=== PATIENT | female | born 1965 | race Caucasian/White ===

== ENCOUNTER → 2021-05-25 10:08 | Outpatient (CLI) | payer OTHER, SELFPAY ==
[2021-05-25 10:51] LABS: Hematocrit 38.3 % (36-46); Mean Corpuscular HGB Conc 33.8 % (30-36); Mean Corpuscular Hemoglobin 31.6 PG (26-34); Mean Corpuscular Volume 93.4 fL (80-100); Platelet Count 224 X10^3/uL (150-400); Red Cell Distribution Width 12.2 % (11.6-14.8); White Blood Cell Count 5.4 X10^3/uL (4.5-11.0)
[2021-05-25 11:29] LABS: Alanine Aminotransferase 17 IU/L (<35); Albumin Globulin Ratio 1.8 (1.0-2.8); Alkaline Phosphatase 50 U/L (38-126); Aspartate Aminotransferase 24 IU/L (14-36); BUN Creatinine Ratio 17.5 (6-22); Bilirubin Total 0.8 mg/dL (0.2-1.3); Blood Urea Nitrogen 14 mg/dL (7-17); Calcium 9.3 mg/dL (8.4-10.2); Carbon Dioxide 25 mmol/L (22-32); Chloride 102 mmol/L (98-107); Cholesterol 191 mg/dL (140-199); Estimated Glomerular Filt Rate > 60.0 mL/min (>60); Globulin 2.2 g/dL (1.7-4.1); Glucose 98 mg/dL (70-100); HDL Cholesterol 75 mg/dL (40-60); HEMOLYSIS < 15 (0-50); LDL Cholesterol Calculated 99 mg/dL (<100); Potassium 4.7 mmol/L (3.4-5.1); Sodium 133 mmol/L (137-145); Total Protein 6.2 g/dL (6.3-8.2); Triglycerides 84 mg/dL (35-150)
[2021-05-25 11:59] LABS: TSH w/ Reflex to FT4 1.15 uIU/mL (0.47-4.68)
== END ==
PROVIDERS: PCP Registered Nurse Diabetes Educator; Referring Provider Registered Nurse Diabetes Educator; Visit Provider Registered Nurse Diabetes Educator
DX: Z00.00 Encounter for general adult medical examination without abnormal findings (principal); E78.5 Hyperlipidemia, unspecified
CPT/HCPCS: 36415; 80053; 80061; 84443; 85027

== ENCOUNTER → 2021-08-03 17:06 | Outpatient (CLI) | payer OTHER, SELFPAY ==
--- NOTE | 2021-08-03 17:06 | DI.MG.S_ITS ---
BILATERAL DIGITAL SCREENING MAMMOGRAM 3D/2D WITH CAD: 08/03/2021 CLINICAL: Routine screening. Family history of breast cancer. Comparison is made to exam dated: 08/19/2019 mammogram - out side. There are scattered fibroglandular elements in both breasts. Current study was also evaluated with a Computer Aided Detection (CAD) system. No significant masses, calcifications, or other findings are seen in either breast. There has been no significant interval change. IMPRESSION: NEGATIVE There is no mammographic evidence of malignancy. A 1 year screening mammogram is recommended. This exam was interpreted at Station ID: [id number]. NOTE: For mammograms, a report in lay terms will be sent to the patient. Approximately 15% of breast malignancies will not be visualized mammographically. In the management of a palpable breast mass, a negative mammogram must not discourage biopsy of a clinically suspicious lesion. Electronically Signed By: Marlon Austin M.D., jr/shannon:08/04/2021 08:36:55 letter sent: Normal Exam ACR BI-RADS Category 1: Negative 3341F
== END ==
PROVIDERS: PCP Registered Nurse Diabetes Educator; Referring Provider Registered Nurse Diabetes Educator; Visit Provider Registered Nurse Diabetes Educator
DX: Z12.31 Encounter for screening mammogram for malignant neoplasm of breast (principal); Z80.3 Family history of malignant neoplasm of breast
CPT/HCPCS: 77063; 77067

== ENCOUNTER → 2022-02-12 10:14 | Outpatient (CLI) | payer OTHER, SELFPAY ==
[2022-02-12 12:25] LABS: COVID19 -Nasal RAPID Negative (Negative)
== END ==
PROVIDERS: PCP Registered Nurse Diabetes Educator; Visit Provider Surgery
DX: Z01.812 Encounter for preprocedural laboratory examination (principal); Z20.822 Contact with and (suspected) exposure to COVID-19
CPT/HCPCS: 87635; C9803

== ENCOUNTER 2022-02-13 09:45 | Day surgery (SDC) | payer OTHER, SELFPAY ==
[2022-02-13] VITALS (11 sets, daily range): BP systolic 75–132; BP diastolic 35–78; PULSE 60–78; RESP 10–144; TEMP 36.1–37.2; O2SAT 91–100; BMI 19.2
--- NOTE | 2022-02-13 | PATH_ITS ---
[facility] Accession Number: [id number] . 01 Material submitted: . rectum - RECTAL POLYP . 02 Diagnosis: Rectal Polyp, Biopsy: Hyperplastic polyp. MRV 02/15/2022 1347 Local . 02 Electronically signed: . Pasquale Kim MD, PhD, Pathologist NPI- [id number] . 01 Gross description: . RECTAL POLYP: Received in formalin is 1 fragment(s) of gutierrez, soft tissue measuring 0.3 x 0.2 x 0.2 cm submitted entirely in 1 cassette(s) /TR 02/14/2022 1440 Local . 02 Pathologist provided ICD-10: K62.1 . 02 CPT . 033646 Specimen Comment: A courtesy copy of this report has been sent to [phone] Performed at: 01 [facility] [address] [id number] MD Hal Dudley MD Phone: [phone] Performed at: 02 [facility] [id number] [facility] [address] [place], [place] [id number] MD Gila Bush MD Phone: [phone]
[2022-02-13] MEDS: LACTATED RINGERS 1,000 ML 200 ML IV (09:52)
--- NOTE | 2022-02-13 10:23 | PM.HP.1 ---
History of Present Illness History of Present Illness Date Patient Seen: 02/13/22 Time Patient Seen: 10:23 Chief complaint: SDC Narrative: The patient presents for colorectal sreening. They have never had any previous examination for such. No personal or family history of colon cancer. On further history denies any recent gastrointestinal symptoms. No nausea, vomiting, abdominal pain, loss of appetite, unexplained weight loss, change in bowel habits, diarrhea, constipation, melena, hematochezia, or bright red blood per rectum. Patient History Medical History Dyslipidemia Family & Social History Social History: household members spouse Tobacco & Substance use: Smoking Status Never smoker Substance Use Type does not use Meds Home Medications and Allergies Home Medications Medication Instructions Recorded Confirmed Type cholecalciferol (vitamin D3) PO 05/09/21 05/25/21 History aqkqdvhzrhfh-Cv-upqg-minerals 18 tab PO DAILY 05/09/21 05/25/21 History mg-0.4 mg tablet (Maximum Daily Multivitamin) omega-3 fatty acids [Fish Oil PO 05/09/21 05/25/21 History Concentrate] estradiol 0.025 mg/24 hr weekly 1 patch TRANSDERMAL QWEEK #12 ea 05/25/21 02/13/22 Rx transdermal patch (Climara) progesterone micronized 100 mg 100 mg PO BEDTIME #90 cap 05/25/21 02/13/22 Rx capsule Allergies Allergy/AdvReac Type Severity Reaction Status Date / Time No Known Drug Allergies Allergy Verified 02/13/22 09:43 Exam Vital Signs (past 8 hours): - 02/13/22 09:57 Temperature 98.9 F Pulse Rate 70 Respiratory Rate 18 Blood Pressure 132/78 Pulse Oximetry 100 Oxygen Delivery Method Room Air Narrative Exam Narrative: GENERAL: Thin adult female in no apparent distress HEENT: No scleral icterus CV: Regular rate, no peripheral edema LUNGS: No increased work of breathing. Patient speaks in full sentences without oxygen support. ABDOMEN: Soft, non-tender, non-distended NEURO: Nonfocal, normal strength throughout, normal gait. SKIN: Warm and dry Assessment & Plan Assessment & Plan narrative: The patient requires colorectal screening and colonoscopy is recommended. Technical details were discussed. Risks, benefits, alternatives explained. Risks including but not limited to myocardial infarction, aspiration, bleeding, pain, missed lesion, incomplete examination, need for further radiographic studies, colonic perforation, and need for major abdominal surgery were discussed. All questions were answered to their satisfaction, and they are in agreement with this plan. Time Spent With Patient Critical Care time: I spent a total of [] minutes of critical care time on this patient's care today; this time is exclusive of procedural time.
[2022-02-13] MEDS: MIDAZOLAM 5 MG/5 ML VIAL IV (10:50)
[2022-02-13] MEDS: fentaNYL 250 MCG/5 ML INJ IV (10:50)
--- NOTE | 2022-02-13 10:53 | P.OP.COLON_ITS ---
Operative Date/Time/Diagnoses Date of procedure: 02/13/22 Time of procedure: 10:53 Pre-op diagnosis: Screening Post-op diagnosis: same Procedure & Clinicians Study performed: Colonoscopy Same procedure as scheduled: Yes Indications: Screening Surgeon: Kai James Procedure Notes Procedure in detail: Medications: Conscious sedation using 5 mg IV midazolam and 125 mcg IV of fentanyl The history and physical was performed/updated and the patient is ASA class is 1. The procedure was discussed in detail with the patient. Potential risks complications including infection, bleeding, missed diagnosis, perforation, need for surgery, and were explained. Their questions were answered and informed consent was obtained. Patient was brought to the procedure room and placed standard monitoring equipment. The patient's vital signs were monitored continuously throughout the entire procedure. Prior to starting time-out was performed. The patient was placed in the left lateral recumbent position. Procedural sedation was adminis tered. Examination began with a thorough inspection of the perianal area there was no evidence of fissures, fistulae, external hemorrhoids or cutaneous malignancy. The colonoscopy scope was then placed into the anal canal and was advanced to the cecum, which was identified by the ileocecal valve, the appendiceal orifice and the confluence of the taenia. The scope was then slowly withdrawn examining colon thoroughly in all directions, irrigating it of any residual stool. FINDINGS 1. Rectum-distal 5 mm polyp removed with Jumbo forceps 2. Remainder of colon was normal and healthy with its appearance The patient tolerated the procedure well. They will be discharged once criteria are met. The prep was of good/excellent quality. The withdrawl time was7 minutes. The sedation time was 25 minutes. Specimen(s): other (Rectal polyp) Complications: none Impression: Colonic polyp Post-procedure Recommendations: Colonoscopy in 5 years Follow up: as needed Disposition: same day surgery
--- NOTE | 2022-02-13 11:12 | SUR.PHASEI ---
Patient drowsy but arousable to verbal stimuli; abdomen soft; taking sips of gingerale without difficulty. Denies pain or nausea. VSS.
[2022-02-13] MEDS: ONDANSETRON 4 MG/2 ML INJ IV (11:43)
== END 2022-02-13 11:51 | disposition home or self-care (01) ==
PROVIDERS: PCP Registered Nurse Diabetes Educator; Referring Provider Surgery; Visit Provider Surgery
PROC: 0DJD8ZZ Inspection of Lower Intestinal Tract, Via Natural or Artificial Opening Endoscopic (ICD-10-PCS; CPT 45378; principal; 2022-02-13 10:00)
DX: Z12.11 Encounter for screening for malignant neoplasm of colon (principal); K62.1 Rectal polyp
CPT/HCPCS: 45380; 99152; 99153; J2250; J2405; J3010

== ENCOUNTER → 2022-05-28 09:39 | Outpatient (CLI) | payer OTHER, SELFPAY ==
[2022-05-28 10:28] LABS: Hematocrit 38.3 % (36-46); Hemoglobin 13.3 g/dL (12.0-16.0); Mean Corpuscular HGB Conc 34.7 % (30-36); Mean Corpuscular Hemoglobin 31.5 PG (26-34); Mean Corpuscular Volume 90.9 fL (80-100); Platelet Count 244 X10^3/uL (150-400); Red Blood Cell Count 4.21 X10^6/uL (4.0-5.2); Red Cell Distribution Width 12.5 % (11.6-14.8); White Blood Cell Count 5.3 X10^3/uL (4.5-11.0)
[2022-05-28 10:38] LABS: Alanine Aminotransferase 16 IU/L (<35); Albumin 4.6 g/dL (3.5-5.0); Albumin Globulin Ratio 1.8 (1.0-2.8); Alkaline Phosphatase 46 U/L (38-126); Aspartate Aminotransferase 22 IU/L (14-36); BUN Creatinine Ratio 19.2 (6-22); Bilirubin Total 0.7 mg/dL (0.2-1.3); Blood Urea Nitrogen 15 mg/dL (7-17); Carbon Dioxide 27 mmol/L (22-32); Chloride 101 mmol/L (98-107); Cholesterol 222 mg/dL (140-199); Estimated Glomerular Filt Rate > 60 mL/min (>60); Globulin 2.6 g/dL (1.7-4.1); Glucose 103 mg/dL (70-100); HDL Cholesterol 83 mg/dL (40-60); HEMOLYSIS < 15 (0-50); LDL Cholesterol Calculated 123 mg/dL (<100); Potassium 4.4 mmol/L (3.4-5.1); Sodium 136 mmol/L (137-145); Total Protein 7.2 g/dL (6.3-8.2); Triglycerides 82 mg/dL (35-150)
[2022-05-28 10:40] LABS: HEMOLYSIS < 15 (0-50); Iron 139 ug/dL (37-170)
[2022-05-28 10:50] LABS: Percent Iron Saturation 55 % (15-50); Total Iron Binding Capacity 255 ug/dL (265-497); Transferrin 211 mg/dL (206-381)
[2022-05-28 11:04] LABS: TSH w/ Reflex to FT4 0.97 uIU/mL (0.47-4.68)
[2022-05-28 11:08] LABS: Ferritin 104 ng/mL (11-264)
== END ==
PROVIDERS: PCP Registered Nurse Diabetes Educator; Referring Provider Registered Nurse Diabetes Educator; Visit Provider Registered Nurse Diabetes Educator
DX: L65.9 Nonscarring hair loss, unspecified (principal); L65.8 Other specified nonscarring hair loss
CPT/HCPCS: 36415; 80053; 80061; 82627; 82728; 83540; 83550; 84403; 84443; 85027

== ENCOUNTER → 2023-09-05 16:26 | Outpatient (CLI) | payer OTHER, SELFPAY ==
--- NOTE | 2023-09-05 | DI.MG.S_ITS ---
BILATERAL DIGITAL SCREENING MAMMOGRAM 3D/2D WITH CAD: 09/05/2023 CLINICAL: Routine screening. Family history of breast cancer. Comparison is made to exams dated: 08/03/2021 mammogram - [facility] and 08/19/2019 mammogram - out [facility]. Both breasts are heterogeneously dense, which may obscure small masses (category c / 51-75% glandular tissue). Current study was also evaluated with a Computer Aided Detection (CAD) system. No significant masses, calcifications, or other findings are seen in either breast. There has been no significant interval change. IMPRESSION: NEGATIVE There is no mammographic evidence of malignancy. A 1 year screening mammogram is recommended. Based on the Tyrer Cuzick model (a risk assessment model) the patient's lifetime risk is 10.7% and her 10 year risk is 3.9%. According to the ACR, ACS, and NCCN guidelines, an annual breast MRI exam along with mammogram is recommended if the patient's lifetime risk is 20% or greater. This exam was interpreted at Station ID: [id number]. NOTE: For mammograms, a report in lay terms will be sent to the patient. Approximately 15% of breast malignancies will not be visualized mammographically. In the management of a palpable breast mass, a negative mammogram must not discourage biopsy of a clinically suspicious lesion. Electronically Signed By: Shan nova/shannon:09/06/2023 18:37:51 letter sent: Normal Exam ACR BI-RADS Category 1: Negative 3341F
== END ==
PROVIDERS: PCP Registered Nurse Diabetes Educator; Referring Provider Registered Nurse Diabetes Educator; Visit Provider Registered Nurse Diabetes Educator
DX: Z12.31 Encounter for screening mammogram for malignant neoplasm of breast (principal); Z80.3 Family history of malignant neoplasm of breast
CPT/HCPCS: 77063; 77067

== ENCOUNTER → 2023-09-25 11:04 | Outpatient (CLI) | payer OTHER, SELFPAY ==
[2023-09-25 11:44] LABS: Hematocrit 39.9 % (36-46); Hemoglobin 13.9 g/dL (12.0-16.0); Mean Corpuscular HGB Conc 34.7 % (30-36); Mean Corpuscular Hemoglobin 31.7 PG (26-34); Mean Corpuscular Volume 91.3 fL (80-100); Platelet Count 249 X10^3/uL (150-400); Red Blood Cell Count 4.37 X10^6/uL (4.0-5.2); Red Cell Distribution Width 12.6 % (11.6-14.8); White Blood Cell Count 6.2 X10^3/uL (4.5-11.0)
[2023-09-25 12:18] LABS: Alanine Aminotransferase 20 IU/L (<35); Albumin 4.7 g/dL (3.5-5.0); Albumin Globulin Ratio 1.7 (1.0-2.8); Alkaline Phosphatase 46 U/L (38-126); Aspartate Aminotransferase 23 IU/L (14-36); BUN Creatinine Ratio 17.3 (6-22); Bilirubin Total 0.6 mg/dL (0.2-1.3); Blood Urea Nitrogen 13 mg/dL (7-17); Calcium 9.6 mg/dL (8.4-10.2); Carbon Dioxide 28 mmol/L (22-32); Chloride 101 mmol/L (98-107); Cholesterol 232 mg/dL (140-199); Estimated Glomerular Filt Rate > 60 mL/min (>60); Globulin 2.7 g/dL (1.7-4.1); Glucose 102 mg/dL (70-100); HDL Cholesterol 81 mg/dL (40-60); HEMOLYSIS < 15 (0-50); LDL Cholesterol Calculated 132 mg/dL (<100); Potassium 4.3 mmol/L (3.4-5.1); Sodium 136 mmol/L (137-145); Total Protein 7.4 g/dL (6.3-8.2); Triglycerides 94 mg/dL (35-150)
[2023-09-25 12:31] LABS: HEMOLYSIS < 15 (0-50); Iron 141 ug/dL (37-170)
[2023-09-25 12:42] LABS: Percent Iron Saturation 57 % (15-50); Total Iron Binding Capacity 247 ug/dL (265-497); Transferrin 214 mg/dL (206-381)
[2023-09-25 12:46] LABS: Ferritin 115 ng/mL (11-264)
[2023-09-25 13:02] LABS: TSH w/ Reflex to FT4 1.42 uIU/mL (0.47-4.68)
== END ==
PROVIDERS: PCP Registered Nurse Diabetes Educator; Referring Provider Registered Nurse Diabetes Educator; Visit Provider Registered Nurse Diabetes Educator
DX: E78.5 Hyperlipidemia, unspecified (principal); R79.0 Abnormal level of blood mineral
CPT/HCPCS: 36415; 80053; 80061; 82728; 83540; 83550; 84443; 85027